=== PATIENT | male | born 1990 | race African-American/Black ===

== ENCOUNTER 2018-07-18 13:22 | Emergency (ER) | payer MEDICAID, OTHER ==
[~2018-07-18] VITALS: Ht 172.7 cm; Wt 75.0 kg
[2018-07-18 13:24] VITALS: BP 130/90
== END 2018-07-18 16:41 | disposition left against medical advice (07) ==
LOC: ER 13:52
DX: R68.84 Jaw pain (principal); Z53.21 Procedure and treatment not carried out due to patient leaving prior to being seen by health care provider